=== PATIENT | female | born 1970 ===

== ENCOUNTER 2021-01-16 20:29 | Emergency (ER) | payer SELFPAY ==
[2021-01-16] MEDS ORDERED: LORazepam 2 MG/ML VIAL ONE (20:51)
--- NOTE | 2021-01-16 21:08 | RAD REPORT ---
EXAM DESCRIPTION: Bryce Single View01/16/2021 8:52 pm CLINICAL HISTORY: Chest pain COMPARISON: none FINDINGS: The lungs appear clear of acute infiltrate. The heart is normal size IMPRESSION: No acute abnormalities displayed
[2021-01-16 21:09] LABS: Hematocrit 41.4 % (36.0-45.0); RBC Red Blood Cell Count 4.37 M/uL (3.86-4.86)
[2021-01-16 21:10] LABS: Absolute Lymphocytes (CBC) 1.4 K/uL (0.7-4.9); Lymphocytes % 36.2 % (15.3-44.8); MPV 8.9 fL (7.6-11.3)
[2021-01-16 21:16] LABS: Protime INR 1.04
[2021-01-16 21:30] LABS: ALT/SGPT 36 U/L (12-78); AST/SGOT 34 U/L (15-37); Albumin 3.9 g/dL (3.4-5.0); Alkaline Phosphatase 81 U/L (45-117); BUN Blood Urea Nitrogen 4 mg/dL (7-18); Bicarbonate 20 mmol/L (21-32); Bilirubin Direct 0.1 mg/dL (0-0.2); Bilirubin Total 0.4 mg/dL (0.2-1.0); Glucose Level 84 mg/dL (74-106); Magnesium 2.4 mg/dL (1.8-2.4); NT PRO-BNP 53 pg/mL (<125); Potassium 3.5 mmol/L (3.5-5.1); Protein, Total 7.5 g/dL (6.4-8.2); Sodium Level 137 mmol/L (136-145); Troponin (Emerg Dept Use Only) < 0.02 ng/mL (0.0-0.045)
[2021-01-17] MEDS ORDERED: NA CHLORIDE 0.9% 1,000 ML ONE (00:19)
--- NOTE | 2021-01-17 01:43 | ER ---
Nurse's Notes [facility] Name: Noreen Mason Age: 50 yrs Sex: Female : 1970 Arrival Date: 01/16/2021 Time: 20:35 Bed 20 Private MD: Diagnosis: Cocaine abuse;Cough;Chest pain, unspecified Presentation: 01/16 20:38 Chief complaint: EMS states: Pt reports she is having a hard time swallowing and has ea been coughing for three days. Pt admitted to smoking crack two hours ago. Coronavirus screen: At this time, the client does not indicate any symptoms associated with coronavirus-19. Ebola Screen: No symptoms or risks identified at this time. Initial Sepsis Screen: Does the patient meet any 2 criteria? No. Patient's initial sepsis screen is negative. Does the patient have a suspected source of infection? No. Patient's initial sepsis screen is negative. Risk Assessment: Do you want to hurt yourself or someone else? Patient reports no desire to harm self or others. 20:38 Method Of Arrival: EMS: [facility] ea 20:38 Acuity: CHARLES 3 ea 20:40 Onset of symptoms was January 16, 2021. lp1 Historical: - Allergies: 20:54 Ibuprofen; ea - Immunization history:: Adult Immunizations unknown. - Social history:: Smoking status: Patient reports the use of cigarette tobacco products. Screenin:40 Abuse screen: Denies threats or abuse. Nutritional screening: No deficits noted. ea Tuberculosis screening: No symptoms or risk factors identified. Fall Risk IV access (20 points). Assessment: 20:38 General: Appears uncomfortable, Behavior is anxious, restless. Pain: Denies pain. ea Neuro: Level of Consciousness is awake, alert, obeys commands, Oriented to person, place, time. Respiratory: Airway is patent Respiratory effort is even, unlabored, Respiratory pattern is regular, symmetrical. Derm: Skin is pink, warm \T\ dry. 21:43 Reassessment: Patient and/or family updated on plan of care and expected duration. Pain ea level reassessed. Patient is alert, oriented x 3, equal unlabored respirations, skin warm/dry/pink. Pt resting with eyes closed, respirations even and unlabored, chest expansions even and symmetrical. 22:27 Reassessment: Patient and/or family updated on plan of care and expected duration. Pain ea level reassessed. Pt resting with eyes closed respirations even and unlabored. 23:21 Reassessment: Patient and/or family updated on plan of care and expected duration. Pain ea level reassessed. Pt resting with eyes closed, respirations even and unlabored, chest expansions even and symmetrical. 23:26 Reassessment: Salvador (friend) [phone] states to give him a call if pt needs ride ea home if she is being discharged. 01/17 01:59 Reassessment: Patient and/or family updated on plan of care and expected duration. Pain ea level reassessed. Patient is alert, oriented x 3, equal unlabored respirations, skin warm/dry/pink. Discharge instruction given to patient verbalized the understanding. Pt awaiting on ride for transport home. Vital Signs: 01/16 20:40 BP 139 / 88; Pulse 99; Resp 18; Temp 98.2; Pulse Ox 100% ; Weight 81.65 kg; Height 5 lp1 ft. 3 in. (160.02 cm); 22:28 BP 112 / 88; Pulse 104; Resp 18; Pulse Ox 96% ; ea 01/17 00:00 BP 110 / 60; Pulse 78; Resp 18; Pulse Ox 98% ; ea 01:55 BP 124 / 68; Pulse 90; Resp 18; Temp 98.5; Pulse Ox 98% ; ea 01/16 20:40 Body Mass Index 31.89 (81.65 kg, 160.02 cm) lp1 ED Course: 01/16 20:35 Patient arrived in ED. lp1 20:37 Kobe Florez MD is Attending Physician. 7 20:40 Triage completed. ea 20:40 Inserted saline lock: 20 gauge in right antecubital area, using aseptic technique. ea Blood collected. 20:40 Allergy band placed. Bed in low position. Call light in reach. Pulse ox on. NIBP on. ea 20:40 Arm band placed on right wrist. Patient placed in an exam room, on a stretcher, on ea pulse oximetry. 20:52 XRAY Chest (1 view) In Process Unspecified. EDMS 20:52 Judith Gibbons RN is Primary Nurse. ea 01/17 02:00 No provider procedures requiring assistance completed. IV discontinued, intact, ea bleeding controlled, No redness/swelling at site. Pressure dressing applied. Administered Medications: 01/16 20:50 Drug: Ativan (LORazepam) 1 mg Route: IVP; Site: right antecubital; lp1 23:56 Follow up: Response: No adverse reaction ea 01/17 00:11 Drug: NS 0.9% 1000 ml Route: IV; Rate: 1000 ml; Site: right antecubital; ea 02:02 Follow up: Response: No adverse reaction; IV Status: Completed infusion; IV Intake: ea 1000ml Intake: 02:02 IV: 1000ml; Total: 1000ml. ea Outcome: 01:42 Discharge ordered by mh7 02:01 Discharge instructions given to patient, Instructed on discharge instructions, follow ea up and referral plans. Demonstrated understanding of instructions, follow-up care. 02:24 Patient left the ED. ea Signatures: Dispatcher [employer] EDKelsey Morillo RN RN 1 Judith Gibbons RN RN ea Holmes, Maurice, MD MD 7
--- NOTE | 2021-01-17 01:43 | EDPHYS ---
Physician Documentation [facility] Name: Noreen Mason Age: 50 yrs Sex: Female : 1970 Arrival Date: 01/16/2021 Time: 20:35 Bed 20 Private MD: ED Physician Kobe Florez HPI: 01/16 21:09 This 50 yrs old Female presents to ER via EMS with complaints of Cough. SOB.. mh7 21:10 The patient has shortness of breath at rest, during emotionally upset. Onset: The mh7 symptoms/episode began/occurred today. Duration: The symptoms are continuous, and are unchanged since they started. The patient's shortness of breath is aggravated by coughing, is alleviated by nothing. Associated signs and symptoms: Pertinent positives: chest pain, non-productive cough, , Pertinent negatives: productive cough, diaphoresis, dizziness, fever, hemoptysis, loss of consciousness, nausea, numbness in extremities, visual changes, vomiting. Severity of symptoms: At their worst the symptoms were moderate today, in the emergency department the symptoms are unchanged despite EMS interventions. Reports smoking crack cocaine today.. Historical: - Allergies: 20:54 Ibuprofen; ea - Immunization history:: Adult Immunizations unknown. - Social history:: Smoking status: Patient reports the use of cigarette tobacco products. ROS: 21:10 Constitutional: Negative for fever, chills, and weight loss, Eyes: Negative for injury, mh7 pain, redness, and discharge, ENT: Negative for injury, pain, and discharge, Neck: Negative for injury, pain, and swelling, Abdomen/GI: Negative for abdominal pain, nausea, vomiting, diarrhea, and constipation, Back: Negative for injury and pain, : Negative for injury, bleeding, discharge, and swelling, MS/Extremity: Negative for injury and deformity, Skin: Negative for injury, rash, and discoloration, Neuro: Negative for headache, weakness, numbness, tingling, and seizure, Psych: Negative for depression, anxiety, suicide ideation, homicidal ideation, and hallucinations, Allergy/Immunology: Negative for hives, rash, and allergies, Endocrine: Negative for neck swelling, polydipsia, polyuria, polyphagia, and marked weight changes, Hematologic/Lymphatic: Negative for swollen nodes, abnormal bleeding, and unusual bruising. Exam: 21:10 Head/Face: Normocephalic, atraumatic. Eyes: Pupils equal round and reactive to light, mh7 extra-ocular motions intact. Lids and lashes normal. Conjunctiva and sclera are non-icteric and not injected. Cornea within normal limits. Periorbital areas with no swelling, redness, or edema. ENT: Nares patent. No nasal discharge, no septal abnormalities noted. Tympanic membranes are normal and external auditory canals are clear. Oropharynx with no redness, swelling, or masses, exudates, or evidence of obstruction, uvula midline. Mucous membranes moist. Neck: Trachea midline, no thyromegaly or masses palpated, and no cervical lymphadenopathy. Supple, full range of motion without nuchal rigidity, or vertebral point tenderness. No Meningismus. Chest/axilla: Normal chest wall appearance and motion. Nontender with no deformity. No lesions are appreciated. Cardiovascular: Regular rate and rhythm with a normal S1 and S2. No gallops, murmurs, or rubs. Normal PMI, no JVD. No pulse deficits. Respiratory: Lungs have equal breath sounds bilaterally, clear to auscultation and percussion. No rales, rhonchi or wheezes noted. No increased work of breathing, no retractions or nasal flaring. Abdomen/GI: Soft, non-tender, with normal bowel sounds. No distension or tympany. No guarding or rebound. No evidence of tenderness throughout. Back: No spinal tenderness. No costovertebral tenderness. Full range of motion. Skin: Warm, dry with normal turgor. Normal color with no rashes, no lesions, and no evidence of cellulitis. MS/ Extremity: Pulses equal, no cyanosis. Neurovascular intact. Full, normal range of motion. Neuro: Awake and alert, GCS 15, oriented to person, place, time, and situation. Cranial nerves II-XII grossly intact. Motor strength 5/5 in all extremities. Sensory grossly intact. Cerebellar exam normal. Normal gait. 21:10 Constitutional: The patient appears in no acute distress, alert, awake, anxious, restless, uncomfortable. 21:10 Psych: Behavior/mood is anxious, Affect is animated, Oriented to person, place, time, Patient has no thoughts/intents to harm self or others. Judgement / Insight is normal. Memory is normal. Delusions/hallucinations are not present. Vital Signs: 20:40 BP 139 / 88; Pulse 99; Resp 18; Temp 98.2; Pulse Ox 100% ; Weight 81.65 kg; Height 5 lp1 ft. 3 in. (160.02 cm); 22:28 BP 112 / 88; Pulse 104; Resp 18; Pulse Ox 96% ; ea 01/17 00:00 BP 110 / 60; Pulse 78; Resp 18; Pulse Ox 98% ; ea 01:55 BP 124 / 68; Pulse 90; Resp 18; Temp 98.5; Pulse Ox 98% ; ea 01/16 20:40 Body Mass Index 31.89 (81.65 kg, 160.02 cm) lp1 MDM: 01:38 Differential diagnosis: Anemia Anxiety Reaction asthma, Bronchitis CHF exacerbation, 7 Chronic Obstructive Pulmonary Disease Myocardial Infarction pneumonia, Pneumothorax Psychogenic pulmonary edema, Pulmonary Embolism reactive airway disease. Data reviewed: vital signs, nurses notes, EMS record, lab test result(s), cardiac enzymes, CBC, electrolytes, EKG, radiologic studies, plain films. Data interpreted: Pulse oximetry: on room air is 100 %. Interpretation: normal. Counseling: I had a detailed discussion with the patient and/or guardian regarding: the historical points, exam findings, and any diagnostic results supporting the discharge/admit diagnosis, lab results, radiology results, the need for outpatient follow up, to return to the emergency department if symptoms worsen or persist or if there are any questions or concerns that arise at home. Response to treatment: the patient's symptoms have resolved after treatment, the patient's blood pressure is in an acceptable range, mental status has returned to baseline, the patient no longer shows bradycardia, the patient is not short of breath, the patient is not tachycardic, the patient's pain is gone, the patient's temperature has normalized. 01:[address] [facility] 01/16 20:37 Order name: Basic Metabolic Panel [facility] 01/16 20:37 Order name: CBC with Diff; Complete Time: 21:32 [facility] 01/16 20:37 Order name: LFT's [facility] 01/16 20:37 Order name: Magnesium [facility] 01/16 20:37 Order name: NT PRO-BNP [facility] 01/16 20:37 Order name: PT-INR; Complete Time: 00:59 [facility] 01/16 20:37 Order name: Troponin (emerg Dept Use Only); Complete Time: 21:32 7 01/16 20:38 Order name: Basic Metabolic Panel; Complete Time: 21:32 EDMS 01/16 20:38 Order name: ETOH Level; Complete Time: 22:24 mh7 01/16 20:38 Order name: Liver (Hepatic) Function; Complete Time: 21:32 EDMS 01/16 20:38 Order name: Magnesium; Complete Time: 21:32 EDMS 01/16 20:38 Order name: NT PRO-BNP; Complete Time: 21:32 EDMS 01/16 23:54 Order name: Troponin (emerg Dept Use Only); Complete Time: 00:59 mh7 01/16 20:37 Order name: XRAY Chest (1 view); Complete Time: 21:32 7 01/16 20:37 Order name: EKG; Complete Time: 20:38 7 01/16 20:37 Order name: Cardiac monitoring; Complete Time: 20:50 7 01/16 20:37 Order name: EKG - Nurse/Tech; Complete Time: 20:50 7 01/16 20:37 Order name: IV Saline Lock; Complete Time: 20:50 7 01/16 20:37 Order name: Labs collected and sent; Complete Time: 20:51 7 01/16 20:37 Order name: O2 Per Protocol; Complete Time: 20:51 7 01/16 20:37 Order name: O2 Sat Monitoring; Complete Time: 20:51 7 01/17 00:17 Order name: D-Dimer; Complete Time: 00:59 EDMS Administered Medications: 01/16 20:50 Drug: Ativan (LORazepam) 1 mg Route: IVP; Site: right antecubital; lp1 23:56 Follow up: Response: No adverse reaction ea 01/17 00:11 Drug: NS 0.9% 1000 ml Route: IV; Rate: 1000 ml; Site: right antecubital; ea 02:02 Follow up: Response: No adverse reaction; IV Status: Completed infusion; IV Intake: ea 1000ml Disposition: 01/17/21 01:42 Discharged to Home. Impression: Cocaine abuse, Cough, Chest pain, unspecified. - Condition is Stable. - Discharge Instructions: Stimulant Use Disorder-Cocaine, Nonspecific Chest Pain, [id number], Cough, Adult, [id number]. - Medication Reconciliation Form, Thank You Letter, Antibiotic Education, Prescription Opioid Use form. - Follow up: Private Physician; When: 1 - 2 days; Reason: Worsening of condition, Recheck today's complaints, Continuance of care, Re-evaluation by your physician. - Problem is new. - Symptoms have improved. Signatures: Dispatcher [employer] [facility] Kesley Obando RN RN lp1 Judith Gibbons RN RN ea Holmes, Maurice, MD MD mh7 Corrections: (The following items were deleted from the chart) 00:18 01/16 23:55 D-DIMER+[id number] ordered. [facility] 01/17 02:24 01:42 01/17/2021 01:42 Discharged to Home. Impression: Cocaine abuse; Cough; Chest ea pain, unspecified. Condition is Stable. Forms are Medication Reconciliation Form, Thank You Letter, Antibiotic Education, Prescription Opioid Use. Follow up: Private Physician; When: 1 - 2 days; Reason: Worsening of condition, Recheck today's complaints, Continuance of care, Re-evaluation by your physician. Problem is new. Symptoms have improved. mh7
[2021-01-17 02:33] VITALS: O2SAT 98
[2021-01-17 02:34] VITALS: BP 124/68; TEMP 98.5
--- NOTE | 2021-01-17 07:52 | EKG ---
Test Date: 2021-01-16 Test Time: 20:47:20 Manager Battery: SRAVANTHI MEASUREMENT RESULTS: Intervals: Rate: 87 LA: 170 QRSD: 102 QT: 392 QTc: 471 [place]: P: 52 LA: 170 QRS: 1 T: 53 INTERPRETIVE STATEMENTS: Normal sinus rhythm Normal ECG No previous ECG available for comparison Electronically Signed On 01-17-21 07:51:54 CDT by Maurice Pope
== END 2021-01-17 02:24 | disposition home or self-care (01) ==
LOC: ER 20:29
DX: F14.10 Cocaine abuse, uncomplicated (principal); R07.9 Chest pain, unspecified; F17.210 Nicotine dependence, cigarettes, uncomplicated; Z88.6 Allergy status to analgesic agent
CPT/HCPCS: 36415; 71045; 80048; 80076; 80320; 83735; 83880; 84484; 85025; 85379; 85610; 93005; 96361; 96374; 99284; J7030